=== PATIENT | male | born 1985 | race Caucasian/White ===

== ENCOUNTER 2017-03-06 19:05 | Emergency (ER) | payer OTHER ==
[2017-03-06 19:14] VITALS: BP 151/96
[2017-03-06] MEDS ORDERED: Acetaminophen TAB* 325 MG PO ONE (20:26)
--- NOTE | 2017-03-06 20:35 | UC ---
Sasha Aviles Emily, scribed for Yudith Albarran MD on 03/06/17 at 2026 . Dental HPI - HPI Summary HPI Summary: This patient is a 31 year old M presenting to urgent care with a chief complaint of L lower dental pain radiating to neck that began around 0200. The CC is described as ache. The patient rates the pain 7/10 in severity. Pt took ibuprofen at noon with mild improvement, but none since. Pt denies drooling, pain with mouth opening or pain with movement of tongue. Pt denies drooling. Pt discomfort slightly increases with swallowing, but no difficulty swallowing and no SOB. Pt reports this pain being similar to previous tooth infections. Pt took one PCN this morning he had left over from previous infection. Patient's medication reviewed this visit. - History of Current Complaint Chief Complaint: UCDentalProblem Stated Complaint: TOOTH ACHE Time Seen by Provider: 03/06/17 19:36 Hx Obtained From: Patient Onset/Duration: Sudden Onset, Lasting Hours Severity: Moderate Pain Intensity: 7 Pain Scale Used: 0-10 Numeric Aggravating Factor(s): Heat - Allergies/Home Medications Allergies/Adverse Reactions: Allergies Allergy/AdvReac Type Severity Reaction Status Date / Time No Known Allergies Allergy Verified 03/06/17 19:13 Home Medications: Home Medications Ibuprofen TAB* [Advil TAB*] 400 mg PO PRN 03/06/17 [History] Metoprolol Tartrate TAB* [Lopressor TAB*] 03/06/17 [History] PMH/Surg Hx/FS Hx/Imm Hx - Additional Past Medical History Additional PMH: History of dental problems. Previously Healthy: No Cardiovascular History: Hypertension Other History Of: Negative For: HIV - Surgical History Surgical History: None - Family History Known Family History: Positive: Diabetes - Social History Occupation: Employed Full-time Lives: With Family Alcohol Use: Occasionally Substance Use Type: None Smoking Status (MU): Current Every Day Smoker Type: Cigarettes Amount Used/How Often: 1 PPD Review of Systems Constitutional: Other - Negative fever ENT: Dental Pain, Other - Negative drooling All Other Systems Reviewed And Are Negative: Yes Physical Exam Triage Information Reviewed: Yes Appearance: Well-Appearing, Well-Nourished, Pain Distress - mild discomfort Vital Signs: Initial Vital Signs Temp 96.8 F 03/06/17 19:10 Pulse 88 03/06/17 19:10 Resp 18 03/06/17 19:10 BP 151/96 03/06/17 19:10 Pulse Ox 96 03/06/17 19:10 Eye Exam: Normal Eyes: Positive: Conjunctiva Clear. Negative: Discharge ENT Exam: Normal ENT: Positive: Hearing grossly normal, Pharynx normal, TMs normal, Other: - no intra-oral edema Full tongue protrusion, no deviation no drooling No difficulty with speech. Negative: Pharyngeal erythema, Nasal congestion, Nasal drainage, Tonsillar swelling Dental: Positive: Gross Decay/Caries @, Cervical Lymphadenopathy, Other: - Pt with widely poor dentition #19 broken at gumline, mild erythema, no discharge no odor no fluctance + TTP with palpation of tooth Neck: Positive: Other: - mild submandibular LA on left neck supple. Negative: No Lymphadenopathy Respiratory Exam: Normal Respiratory: Positive: Chest non-tender, Lungs clear, Normal breath sounds, No respiratory distress, No accessory muscle use Cardiovascular Exam: Normal Cardiovascular: Positive: RRR, No Murmur, Pulses Normal Abdominal Exam: Normal Abdomen Description: Positive: Nontender, No Organomegaly, Soft Bowel Sounds: Positive: Present Musculoskeletal Exam: Normal Neurological Exam: Normal Neurological: Positive: Alert Psychological Exam: Normal Skin Exam: Normal Dental Complaint Course/Dx - Course Course Of Treatment: Pt presents with dental pain and painful swallowing on left. Pt with poor dentition and tenderness on #19 - no fluctance. Dwight lstart Pen VK. motrin/apap. swish and spit. pt has dentist. return precautions discussed. Pt comfortable and in agreeement with pt - Differential Dx/Diagnosis Provider Diagnoses: dental pain Discharge - Discharge Plan Condition: Stable Disposition: HOME Prescriptions: Penicillin VK 500 MG TAB(NF) [Penicillin VK 500 mg Tab] 500 mg PO TID #30 tab Patient Education Materials: Toothache (ED) Forms: *Work Release Referrals: Rudy Novoa MD [Primary Care Provider] - Additional Instructions: - Stay well hydrated. Drink plenty of non-alcoholic, non-caffinated beverages - Take antibiotics as prescribed until gone - Swish and spit with warm, salt water 2-3 times a day - Okay to alternate ibuprofen (Advil, Motrin) and tylenol every 3hours for pain. Take with food. Do NOT take for more than 4-5 days - If you develop drooling, pain with movement of your tongue, difficultly swallowing, fevers, or other concerns - call your doctor or return with questions or concerns The documentation as recorded by the Sasha mcdaniel Emily accurately reflects the service I personally performed and the decisions made by me, Yudith Albarran MD.
== END 2017-03-06 20:41 | disposition home or self-care (01) ==
LOC: UCEAST 19:05
DX: K08.89 Other specified disorders of teeth and supporting structures (principal); I10 Essential (primary) hypertension; F17.210 Nicotine dependence, cigarettes, uncomplicated
CPT/HCPCS: 99212; A9270-GY; G0463